=== PATIENT | male | born 1995 | race Two or more races ===

== ENCOUNTER 2018-06-25 03:31 | Emergency (ER) | payer MEDICAID ==
[~2018-06-25] VITALS: Ht 175.3 cm; Wt 61.2 kg
[2018-06-25 03:43] VITALS: BP 118/62
[2018-06-25] MEDS ORDERED: IPRATROPIUM BROM 0.5 MG/2.5ML INH SOL NEB ONE (05:15)
[2018-06-25] MEDS ORDERED: ALBUTEROL SULF 2.5 MG/0.5ML(0.5%) NEB SOLN NEB ONE (05:15)
[2018-06-25] MEDS ORDERED: IBUPROFEN 800 MG TAB PO ONE (05:30)
== END 2018-06-25 06:01 | disposition home or self-care (01) ==
LOC: ER 03:32
DX: J40 Bronchitis, not specified as acute or chronic (principal)
CPT/HCPCS: 94640; 99283; J7611; J7644